=== PATIENT | male | born 1985 | race Caucasian/White ===

== ENCOUNTER 2024-06-15 17:10 | Emergency (ER) | payer MEDICAID ==
[~2024-06-15] VITALS: Ht 175.3 cm; Wt 108.0 kg
[2024-06-15 17:12] VITALS: TEMP 98.1; O2SAT 99
[2024-06-15] MEDS ORDERED: DICYCLOMINE 10 MG/5 ML ORAL SYR PO STA (17:51)
[2024-06-15 18:33] LABS: BASOPHILS % 0.6 % (0.0-2.0); HEMATOCRIT. 47.8 % (42.0-52.0); HEMOGLOBIN. 16.3 g/dL (14.0-18.0); LYMPHOCYTES % 15.4 % (20.0-50.0); MEAN CORPUSCULAR HEMOGLOBIN 28.9 pg (28.0-32.0); MEAN CORPUSCULAR HGB CONC 34.2 g/dL (31.0-37.0); MEAN CORPUSCULAR VOLUME 84.7 fL (80.0-94.0); MEAN PLATELET VOLUME 8.1 fl (7.4-10.4); MONOCYTES % 5.2 % (2.0-8.0); NEUTROPHILS % 77.8 % (40.0-76.0); PLATELET 275 x1000/uL (130-400); RED BLOOD CELL COUNT 5.65 mill/uL (4.7-6.1); RED CELL DISTRIBUTION WIDTH 14.3 % (11.6-14.6); WHITE BLOOD COUNT 11.9 x1000/uL (4.5-11.0)
[2024-06-15] MEDS: DICYCLOMINE HCL 10MG CAPSULE PO NR (18:33)
[2024-06-15] MEDS: MAGNESIUM/ALUMINUM HYDROXIDE/SIMETHICONE 30ML UDC PO STA (18:33)
[2024-06-15] MEDS: ONDANSETRON 4MG ODT PO STA (18:33)
[2024-06-15 18:40] LABS: CHLORIDE 104 mEq/L (98-107); POTASSIUM 3.6 mEq/L (3.5-5.1); SODIUM 139 mEq/L (136-145)
[2024-06-15 18:41] LABS: CALCIUM 9.5 mg/dL (8.7-10.4); CARBON DIOXIDE 29 mEq/L (21-32)
[2024-06-15 18:46] LABS: GLUCOSE 90 mg/dL (70-105); UREA NITROGEN BLOOD 14 mg/dL (9-23)
[2024-06-15 18:47] LABS: TROPONIN I HIGH SENSITIVITY < 4 ng/L (3.0-53)
[2024-06-15 18:48] LABS: ALANINE AMINOTRANSFERASE 25 IU/L (10-49); ALBUMIN 4.8 g/dL (3.2-4.8); ASPARTATE AMINOTRANSFERASE 22 IU/L (<34); BILIRUBIN DIRECT 0.3 mg/dL (<=3.0); BILIRUBIN TOTAL 1.1 mg/dL (0.1-1.0); INR 0.9; PROTEIN TOTAL 7.9 g/dL (6.0-8.3); PROTHROMBIN TIME 10.4 sec (9.6-11.0)
[2024-06-15] MEDS ORDERED: FAMO-135 MT (19:30)
[2024-06-15] MEDS ORDERED: METH-653 MT (19:30)
[2024-06-15 19:32] LABS: CLARITY URINE CLEAR (CLEAR); COLOR URINE YELLOW (YELLOW); GLUCOSE URINE NEGATIVE (NEGATIVE); KETONES URINE NEGATIVE (NEGATIVE); LEUKOCYTE ESTERASE URINE NEGATIVE (NEGATIVE); NITRITE URINE NEGATIVE (NEGATIVE); OCCULT BLOOD URINE NEGATIVE (NEGATIVE); PH URINE 5.5 (4.5-8.0); PROTEIN URINE NEGATIVE (NEGATIVE); SPECIFIC GRAVITY URINE 1.011 (1.005-1.030); UROBILINOGEN URINE 0.2 E.U./dL (0.2-1.0)
[2024-06-15 20:02] VITALS: BP 118/73; PULSE 91; RESP 14; O2SAT 100
== END 2024-06-15 20:00 | disposition home or self-care (01) ==
LOC: ER 17:10
DX: R07.89 Other chest pain (principal); E78.00 Pure hypercholesterolemia, unspecified; I10 Essential (primary) hypertension; F41.9 Anxiety disorder, unspecified
CPT/HCPCS: 99285; 71045; 80076; 80048; 81003; 83690; 85025; 85610; 84484; 36415; 93005; Q0162

== ENCOUNTER 2024-06-20 22:47 | Emergency (ER) | payer MEDICAID ==
[~2024-06-20] VITALS: Ht 190.5 cm; Wt 141.0 kg
[~2024-06-20 22:47] MED LIST: FAMO-135 MT; METH-653 MT
[2024-06-20 23:04] VITALS: TEMP 98; O2SAT 96
[2024-06-20 23:41] LABS: CARBON DIOXIDE 27 mEq/L (21-32); CHLORIDE 105 mEq/L (98-107); POTASSIUM 3.7 mEq/L (3.5-5.1); SODIUM 138 mEq/L (136-145)
[2024-06-20 23:42] LABS: BASOPHILS % 0.6 % (0.0-2.0); CALCIUM 9.1 mg/dL (8.7-10.4); EOSINOPHILS % 1.2 % (0.0-5.0); HEMATOCRIT. 49.2 % (42.0-52.0); HEMOGLOBIN. 16.4 g/dL (14.0-18.0); LYMPHOCYTES % 24.2 % (20.0-50.0); MEAN CORPUSCULAR HEMOGLOBIN 28.4 pg (28.0-32.0); MEAN CORPUSCULAR HGB CONC 33.3 g/dL (31.0-37.0); MEAN CORPUSCULAR VOLUME 85.2 fL (80.0-94.0); MEAN PLATELET VOLUME 7.9 fl (7.4-10.4); MONOCYTES % 7.4 % (2.0-8.0); NEUTROPHILS % 66.6 % (40.0-76.0); PLATELET 291 x1000/uL (130-400); RED BLOOD CELL COUNT 5.78 mill/uL (4.7-6.1); RED CELL DISTRIBUTION WIDTH 14.7 % (11.6-14.6); WHITE BLOOD COUNT 12.6 x1000/uL (4.5-11.0)
[2024-06-20 23:46] LABS: CREATININE 1.2 mg/dL (0.6-1.3)
[2024-06-20 23:47] LABS: GLUCOSE 86 mg/dL (70-105); UREA NITROGEN BLOOD 13 mg/dL (9-23)
[2024-06-21 00:10] LABS: ALANINE AMINOTRANSFERASE 23 IU/L (10-49); ALBUMIN 4.6 g/dL (3.2-4.8); ASPARTATE AMINOTRANSFERASE 18 IU/L (<34); BILIRUBIN DIRECT 0.4 mg/dL (<=3.0); BILIRUBIN TOTAL 1.6 mg/dL (0.1-1.0); PROTEIN TOTAL 7.8 g/dL (6.0-8.3)
[2024-06-21] MEDS: ONDANSETRON HCL 4MG TABLET PO ONE (00:28)
[2024-06-21 04:33] LABS: CLARITY URINE CLEAR (CLEAR); COLOR URINE YELLOW (YELLOW); GLUCOSE URINE NEGATIVE (NEGATIVE); KETONES URINE NEGATIVE (NEGATIVE); LEUKOCYTE ESTERASE URINE NEGATIVE (NEGATIVE); NITRITE URINE NEGATIVE (NEGATIVE); OCCULT BLOOD URINE NEGATIVE (NEGATIVE); PH URINE 5.5 (4.5-8.0); PROTEIN URINE TRACE (NEGATIVE); SPECIFIC GRAVITY URINE 1.023 (1.005-1.030); UROBILINOGEN URINE 0.2 E.U./dL (0.2-1.0)
[2024-06-21] MEDS ORDERED: NAPR-1176 MT (04:34)
[2024-06-21] MEDS ORDERED: LIDO700A15 TP (04:34)
[2024-06-21 05:12] VITALS: BP 127/73; PULSE 68; RESP 16; O2SAT 98
[2024-06-21 05:34] LABS: MUCUS URINE 1+ /lpf (NONE/TRACE); SQUAMOUS EPITHELIAL CELL URINE 1+ /lpf (RARE/1+)
[2024-06-21 05:35] LABS: BACTERIA URINE TRACE; RBC URINE 0-2 /hpf (0-2); WBC URINE 0-2 /hpf (0-2)
== END 2024-06-21 05:12 | disposition home or self-care (01) ==
LOC: ER 22:47
DX: R10.84 Generalized abdominal pain (principal); E78.00 Pure hypercholesterolemia, unspecified; I10 Essential (primary) hypertension; F41.9 Anxiety disorder, unspecified
CPT/HCPCS: 99284; 80076; 80048; 83690; 85025; 36415; 74176; 81003; Q0162

== ENCOUNTER 2025-04-09 16:53 | Emergency (ER) | payer MEDICAID ==
[~2025-04-09] VITALS: Ht 177.8 cm; Wt 106.0 kg
[~2025-04-09 16:53] MED LIST changes: +LIDO-53 TP; +NAPR-1176 MT
[2025-04-09 16:55] VITALS: O2SAT 96
[2025-04-09 18:35] LABS: BASOPHILS % 0.6 % (0.0-2.0); EOSINOPHILS % 0.8 % (0.0-5.0); HEMATOCRIT. 45.4 % (42.0-52.0); HEMOGLOBIN. 15.1 g/dL (14.0-18.0); LYMPHOCYTES % 12.4 % (20.0-50.0); MEAN PLATELET VOLUME 8.3 fl (7.4-10.4); MONOCYTES % 6.1 % (2.0-8.0); NEUTROPHILS % 80.1 % (40.0-76.0); PLATELET 286 x1000/uL (130-400); RED BLOOD CELL COUNT 5.41 mill/uL (4.7-6.1); RED CELL DISTRIBUTION WIDTH 14.0 % (11.6-14.6)
[2025-04-09 19:00] LABS: CREATININE 1.0 mg/dL (0.6-1.3); TROPONIN I HIGH SENSITIVITY < 4 ng/L (3.0-53)
[2025-04-09 19:01] LABS: ETHANOL BLOOD < 10 mg/dL (<10); UREA NITROGEN BLOOD 9 mg/dL (9-23)
[2025-04-09 19:02] LABS: ASPARTATE AMINOTRANSFERASE 16 IU/L (<34)
[2025-04-09 19:03] LABS: BILIRUBIN DIRECT 0.3 mg/dL (<=3.0); BILIRUBIN TOTAL 0.9 mg/dL (0.1-1.0); PROTEIN TOTAL 7.2 g/dL (6.0-8.3)
[2025-04-09 20:00] VITALS: BP 115/76; PULSE 62; RESP 18; TEMP 37.3; O2SAT 99
== END 2025-04-09 20:01 | disposition home or self-care (01) ==
LOC: ER 16:53
DX: R07.89 Other chest pain (principal); Z79.1 Long term (current) use of non-steroidal anti-inflammatories (NSAID); F41.9 Anxiety disorder, unspecified; Z79.899 Other long term (current) drug therapy
CPT/HCPCS: 36415; 71045; 80048; 80076; 80320; 84484; 85025; 93005; 99285; G0480